=== PATIENT | male | born 1970 | race Caucasian/White ===

== ENCOUNTER → 2020-01-26 | Outpatient (CLI) | payer BC, MEDICAID | END | disposition home or self-care (01) | LOC: EDSTATUS 01-22 10:30 → CFH 11:23 → EDSTATUS 11:30 | PROVIDERS: ATTEND Internal Medicine | DX: I65.23 Occlusion and stenosis of bilateral carotid arteries (principal); R20.2 Paresthesia of skin; R42 Dizziness and giddiness | CPT/HCPCS: 93880 ==